=== PATIENT | male | born 1980 | race Caucasian/White ===

== ENCOUNTER 2024-11-10 15:03 | Outpatient (CLI) | payer BC | END 2024-11-10 15:04 | disposition home or self-care (01) | LOC: SCSMRI 15:03 | PROVIDERS: ATTEND Family Medicine Sports Medicine | DX: S46.211A Strain of muscle, fascia and tendon of other parts of biceps, right arm, initial encounter (principal); S53.401A Unspecified sprain of right elbow, initial encounter ==